=== PATIENT | male | born 1980 | race Two or more races ===

== ENCOUNTER 2017-11-06 23:14 | Emergency (ER) | payer SELFPAY ==
--- NOTE | 2017-11-06 23:29 | EDPHY ---
H & P HPI/ROS: Chief Complaint: Altered mental status, found down HPI: 37-year-old male found down next to [place]. Patient has been intermittently answering questions. He admits to drinking alcohol this evening. Does not recall if he sustained any injuries. Does state that he has been using cocaine recently as well. None this evening. Patient response briskly to painful stimuli then closes eyes and states that he does not want to talk to me. Denies nausea or vomiting. No numbness or weakness. Patient is answering questions per EMS. ROS: Unobtainable because the patient is unwilling to answer PMH: Anemia Social History: No smoking, positive alcohol, positive cocaine Family History: non-contributory Physical Exam: Gen: Awake, Alert, No Distress HEENT: Head: Atraumatic Nose: no rhinorrhea Eyes: PERRLA, EOMI Mouth: Moist mucosa Neck: Supple, no JVD Chest: nontender, lungs clear to auscultation Heart: S1, S2 normal, no murmur Abd: Soft, non-tender, no guarding Back: no CVA tenderness, no midline tenderness Ext: no edema, non-tender Skin: no rash Neuro: CN II-XII intact, Sensation grossly intact, Strength 5/5 in bilateral upper and lower extremities Constitutional: Initial Vital Signs Temperature (C) 37.2 C 11/06/17 23:27 Heart Rate 85 11/06/17 23:27 Respiratory Rate 18 11/06/17 23:27 Blood Pressure 99/55 L 11/06/17 23:27 O2 Sat (%) 93 11/06/17 23:27 O2 Delivery Mode Room Air O2 (L/minute) 2 Allergies/Adverse Reactions: No Known Allergies Allergy (Unverified 11/06/17 23:35) Home Medications: Medication Instructions Recorded NK [No Known Home Meds] 11/06/17 Medical Decision Making - Diagnostics Imaging Results: Imaging Impressions Head CT 11/06/17 23:23 Impression: There is no acute intracranial abnormality identified on this unenhanced CT evaluation. If there is further clinical concern regarding the patient's symptoms, MR imaging is suggested, if not otherwise contraindicated. Findings were discussed with Christopher Cruz MD at 23:53, on 11/06/2017. Imaging: Discussed imaging studies w/ enterprise resource planning consultant Radiologist ED Course/Re-evaluation: CT scan of the head is negative. Patient's symptoms consistent with alcohol intoxication. Will allow him to metabolize and reassess. Patient is now awake and appropriate. Ambulating unassisted to the bathroom. No current complaints. Medically cleared for discharge. - Data Points Laboratory Results: Laboratory Results 11/06/17 23:10 11/06/17 23:10 11/06/17 11/06/17 23:10 23:10 WBC 7.05 10^3/uL 10^3/uL (3.80-9.50) RBC 4.89 10^6/uL 10^6/uL (4.40-6.38) Hgb 10.5 g/dL L g/dL (13.7-17.5) Hct 35.2 % L % (40.0-51.0) MCV 72.0 fL L fL (81.5-99.8) MCH 21.5 pg L pg (27.9-34.1) MCHC 29.8 g/dL L g/dL (32.4-36.7) RDW 20.6 % H % (11.5-15.2) Plt Count 266 10^3/uL 10^3/uL (150-400) MPV 9.1 fL fL (8.7-11.7) Neut % (Auto) 43.6 % % (39.3-74.2) Lymph % (Auto) 37.9 % % (15.0-45.0) [place] % (Auto) 10.2 % % (4.5-13.0) Eos % (Auto) 7.0 % % (0.6-7.6) Baso % (Auto) 1.0 % % (0.3-1.7) Nucleat RBC Rel Count 0.3 % H % (0.0-0.2) Absolute Neuts (auto) 3.08 10^3/uL 10^3/uL (1.70-6.50) Absolute Lymphs (auto) 2.67 10^3/uL 10^3/uL (1.00-3.00) Absolute Monos (auto) 0.72 10^3/uL 10^3/uL (0.30-0.80) Absolute Eos (auto) 0.49 10^3/uL H 10^3/uL (0.03-0.40) Absolute Basos (auto) 0.07 10^3/uL 10^3/uL (0.02-0.10) Absolute Nucleated RBC 0.02 10^3/uL H 10^3/uL (0-0.01) Immature Gran % 0.3 % % (0.0-1.1) Immature Gran # 0.02 10^3/uL 10^3/uL (0.00-0.10) Platelet Estimate ADEQUATE (ADEQ) Polychromasia 1+ H Hypochromasia 1+ H Microcytic Cells 2+ H Oval Macrocytes 1+ H Sodium 134 mEq/L mEq/L (134-144) Potassium 4.2 mEq/L mEq/L (3.5-5.2) Chloride 99 mEq/L mEq/L (97-110) Carbon Dioxide 20 mEq/l L mEq/l (22-31) Anion Gap 15 mEq/L mEq/L (8-16) BUN 22 mg/dL mg/dL (7-23) Creatinine 1.8 mg/dL H mg/dL (0.7-1.3) Estimated GFR 43 Glucose 82 mg/dL mg/dL (70-100) Calcium 8.4 mg/dL L mg/dL (8.5-10.4) Ethyl Alcohol 267 mg/dL H mg/dL (0-10) Departure - Departure Disposition: Home, Routine, Self-Care Clinical Impression: Alcoholic intoxication Condition: Good Instructions: Alcohol Intoxication (ED) Referrals: Patient,NotPresent [Primary Care Provider] - As per Instructions
[2017-11-06 23:35] VITALS: TEMP 99
[2017-11-06 23:37] LABS: % IMMATURE GRANULYOCYTES 0.3 % (0.0-1.1); ABSOLUTE IMMATURE GRANULOCYTES 0.02 10^3/uL (0.00-0.10); ABSOLUTE NRBC COUNT 0.02 10^3/uL (0-0.01); ADD DIFF? NO; ADD MORPH? YES; ADD SCAN? NO; ATYPICAL LYMPHOCYTE FLAG 0 (0-99); FRAGMENT RBC FLAG 20 (0-99); HEMATOCRIT 35.2 % (40.0-51.0); HEMOGLOBIN 10.5 g/dL (13.7-17.5); LEFT SHIFT FLG 0 (0-99); LIPEMIA HEMOLYSIS FLAG 70 (0-99); MEAN CELL HEMOGLOBIN 21.5 pg (27.9-34.1); MEAN CELL HEMOGLOBIN CONCENTR. 29.8 g/dL (32.4-36.7); MEAN PLATELET VOLUME 9.1 fL (8.7-11.7); NRBC-AUTO% 0.3 % (0.0-0.2); PLATELET CLUMPS FLAG 0 (0-99); PLATELET COUNT 266 10^3/uL (150-400); RED BLOOD CELL COUNT 4.89 10^6/uL (4.40-6.38)
[2017-11-06 23:38] LABS: RED CELL DISTRIBUTION WIDTH 20.6 % (11.5-15.2)
[2017-11-06 23:45] LABS: ANION GAP 15 mEq/L (8-16); CALCIUM 8.4 mg/dL (8.5-10.4); CARBON DIOXIDE 20 mEq/l (22-31); CHLORIDE 99 mEq/L (97-110); CREATININE 1.8 mg/dL (0.7-1.3); ETHANOL SERUM 267 mg/dL (0-10); GLOMERULAR FILTRATION RATE 43; GLUCOSE 82 mg/dL (70-100); POTASSIUM 4.2 mEq/L (3.5-5.2); SODIUM 134 mEq/L (134-144)
[2017-11-07 00:03] LABS: MACROCYTES 1+; MICROCYTES 2+
[2017-11-07 00:04] LABS: HYPOCHROMIA 1+; PLATELET ESTIMATE ADEQUATE (ADEQ); POLYCHROMASIA 1+
[2017-11-07 01:34] VITALS: O2SAT 95
[2017-11-07 04:24] VITALS: BP 103/55; PULSE 70; RESP 15
== END 2017-11-07 05:06 | disposition home or self-care (01) ==
LOC: EDBD 23:14
DX: F10.129 Alcohol abuse with intoxication, unspecified (principal)
CPT/HCPCS: G0480

== ENCOUNTER 2017-12-09 10:17 | Emergency (ER) | payer MEDICAID ==
--- NOTE | 2017-12-09 11:47 | EDPHY ---
General - History Smoking Status: Never smoked Narrative: CHIEF COMPLAINT: M1 hold HISTORY OF PRESENT ILLNESS: Patient presents with reports of M1 hold by [place] [employer]. The patient reports that he was at [facility] attempting to seek help with suicidal thoughts that he has had since last night. He had plans of harming himself by provoking the police to injure him or kill him. He also felt that he would harm others to get the police to do so. He has felt increasingly depressed recently. He has not been on medication for this. He has done this in the past with same result. He has no medical complaints otherwise. No other associated complaints or modifying factors. PSYCHIATRIC DIAGNOSES: Depression anxiety PRIOR PSYCHIATRIC EVALUATIONS: Multiple at [facility] M1/DETAINER: [place] [employer] just prior to arrival today REVIEW OF SYSTEMS: Ten systems reviewed and are negative unless otherwise noted in the HPI EXAMINATION General Appearance: Alert, no distress, unkempt Head: normocephalic, atraumatic Eyes: Pupils equal and round, no conjunctival pallor or injection ENT, Mouth: Mucous membranes moist. Airway patent Neck: Normal inspection, supple, non-tender Respiratory: No retractions or distress. Cardiovascular: Regular rate. Good signs of perfusion Gastrointestinal: Obese abdomen is nondistended. Back: non-tender, no bony abnormalities Neurological: GCS 15. A&O, nonfocal, normal gait Skin: Warm and dry, no rash Extremities: Nontender, no pedal edema Psychiatric: Depressed mood and flat affect. Reports SI and HI with plan to "get the police to kill me by hurting other people first" DIFFERENTIAL DIAGNOSES: Including but not limited to SI, HI, depression, homeless, mood disorder MDM: 11:40 a.m. M1 hold for a suicidal thoughts, homicidal thoughts and aggressive behavior pre- hospital. The patient has a plan of by police by provoking them. I do not feel he has any intent to do so. I feel like the patient is seeking mcc from the weather. However we will proceed with medical clearance and evaluation. He is in no acute distress cooperative thus far. 1:00 p.m. Resting comfortably. Laboratory studies return. No urine sample provided yet 2:00 p.m. Laboratory studies have returned. They are consistent with his alcohol abuse but no acute findings. Drug tox negative. Proceed with psychiatric evaluation. He is medically cleared at this time 4:00 p.m. Patient still awaiting mental health evaluation. No acute distress 5:00 p.m. Patient is still awaiting mental health evaluation. At this time Dr. Boykin will assume care the patient. Please see his note for final disposition. SUPERVISION: Patient was independently examined, but I discussed the case with my secondary supervising physicians (Yfn Chu) The patient was evaluated and managed by the physician administrative services assistant. I have reviewed this chart and I agree with the findings and plan of care as documented , as indicated by my signature. I am the secondary supervising physician. ( Nicki Pulido) Medical Decision Makin:25 p.m. the patient has been evaluated by Mental Health. He no longer endorses suicidal ideations. The contracts for safety. He is eager to leave. They would like to his sent him in a cap to the mcc. He states that he has a history of mild withdrawal but has never had seizures. I will send him with Librium. He is not tachycardic or tremulous. (Cheng Boykin) - Objective Vital Signs: Initial Vital Signs Temperature (C) 36.6 C 12/09/17 10:17 Heart Rate 86 12/09/17 10:17 Respiratory Rate 16 12/09/17 10:17 Blood Pressure 165/103 H 12/09/17 10:17 O2 Sat (%) 95 12/09/17 10:17 O2 Delivery Mode Room Air Allergies/Adverse Reactions: No Known Allergies Allergy (Unverified 11/06/17 23:35) Home Medications: Medication Instructions Recorded NK [No Known Home Meds] 11/06/17 Laboratory Results: Laboratory Results 12/09/17 12:00 12/09/17 12:00 Medications Given: Discontinued Medications Chlordiazepoxide (Librium 25 Mg Prepack#6) 1 btl TAKEHOME EDNOW ONE Stop: 12/09/17 19:27 Last Admin: 12/09/17 19:49 Dose: 1 btl Ibuprofen (Motrin) 600 mg PO EDNOW ONE Stop: 12/09/17 17:45 Last Admin: 12/09/17 17:50 Dose: 600 mg Departure - Departure Disposition: Home, Routine, Self-Care Clinical Impression: Suicidal ideation, Alcoholism Condition: Fair Instructions: Chlordiazepoxide (By mouth), Alcohol Intoxication (ED), Suicide Prevention for Adults (ED) Referrals: [facility],. [Clinic] - As per Instructions
[2017-12-09 12:28] LABS: PLATELET COUNT 253 10^3/uL (150-400)
[2017-12-09 17:15] VITALS: RESP 20; TEMP 98.2; O2SAT 98
[2017-12-09] MEDS ORDERED: IBUPROFEN 600 MG TAB PO ONE (17:44)
[2017-12-09] MEDS ORDERED: CHLORDIAZEPOXIDE 25MG PREPK#6 BTL TAKEHOME ONE (19:26)
[2017-12-09 19:42] VITALS: BP 170/109; PULSE 95
== END 2017-12-09 20:09 | disposition home or self-care (01) ==
LOC: EEVIPCON 10:17
DX: R45.851 Suicidal ideations (principal); F10.20 Alcohol dependence, uncomplicated
CPT/HCPCS: 80305; G0480

== ENCOUNTER 2017-12-12 08:44 | Emergency (ER) | payer MEDICAID ==
[2017-12-12] MEDS ORDERED: IBUPROFEN 600 MG TAB PO ONE (09:08)
[2017-12-12] MEDS ORDERED: ONDANSETRON 4 MG/2 ML VIAL IVP ONE (09:13)
[2017-12-12] MEDS ORDERED: NS 1,000 ML IV ONE (09:13)
--- NOTE | 2017-12-12 09:18 | EDPHY ---
General Narrative: CHIEF COMPLAINT: "I think I got the flu" HISTORY OF PRESENT ILLNESS: Patient complains of 2 days history of cough, congestion, runny nose, sore throat, body aches, headaches, feeling that he has the flu. He thinks that he got when he was here Saturday for mental health evaluation. He had mild symptoms that night. He has attempted hydration and exercise with no improvement. He has not attempted any medications. He has no chest pain but he does have a dry cough. No abdominal pain or urinary complaints. No neck pain or stiffness but does feel sore all over. He has not yet been evaluated for these complaints. No other associated complaints or modifying factors. REVIEW OF SYSTEMS: Ten systems reviewed and are negative unless otherwise noted in the HPI PCP: Located in [place]. Appointment on December 22 SPECIALISTS: None currently PAST MEDICAL HISTORY: history of drug abuse alcohol abuse. Hypertension, anxiety PAST SURGICAL HISTORY: No recent surgery SOCIAL HISTORY: Nonsmoker. Frequent alcohol use. FAMILY HISTORY: Noncontributory EXAMINATION General Appearance: Alert, no distress Head: normocephalic, atraumatic Eyes: Pupils equal and round, no conjunctival pallor or injection ENT, Mouth: Mucous membranes moist. Airway patent. Minimal erythema. No edema. Neck: Normal inspection, supple, non-tender Respiratory: Mild rhonchi. No wheezing. No crackles. No diminishment. No consolidation. No retractions or distress Cardiovascular: Regular rate and rhythm. No murmur Gastrointestinal: Abdomen is soft and nontender Back: non-tender, no bony abnormalities Neurological: GCS 15. A&O, nonfocal, normal gait. Strength symmetric Skin: Warm and dry, no rash. No petechiae or purpura Extremities: Nontender, no pedal edema Psychiatric: Mood and affect normal DIFFERENTIAL DIAGNOSES: Including but not limited to influenza, viral bronchitis, bacterial bronchitis, pneumonia, upper respiratory infection, lower respiratory infection MDM: 9:13 a.m. Flu-like symptoms with examination consistent with history. There is no consolidation or evidence of pneumonia by auscultation. Vital signs are within normal limits. I do not suspect pneumonia or any other systemic, significant illness. I have ordered IV fluid, nausea medication and ibuprofen. Flu test is pending. I will check his CBC and chemistry to evaluate his renal function. 9:30 a.m. Notified by Betty LÓPEZ. Patient reports that he was supposed to be taking lisinopril with says he has not done so in the past week. He is out his medication and has an appointment on the for refill. Given that his blood pressure is elevated I have ordered a p.o. dose of lisinopril. He does not appear to be symptomatic from the hypertension. This is a daily medication dose. I am not ordering this to acutely lower the patient's blood pressure. 9:50 a.m. CBC is unremarkable and consistent with his history of alcohol abuse. 10:10 a.m. Chemistries unremarkable. Influenza test pending. Chest x-ray as read by me, without the aid of the radiologist, reveals hilda hilar thickening consistent with bronchitis. Possibly an early right lower lobe pneumonia. 10:25 a.m. X-ray has been read as central bronchitis. No pneumonia 10:30 a.m. Patient is positive for influenza A. This is consistent with his clinical picture. Chest x-ray does not reveal any pneumonia. He is in no acute distress and does not require any supplemental oxygen. He is stable for discharge home. I will treat him with Tamiflu given his less than 48 hr stated symptoms. Also provide short course of cough medicine, nausea medicine. Recommend increase fluid intake. Recommend follow up closely with his primary care physician for his high blood pressure. I will provide a 1 time prescription of his daily lisinopril 10 mg. ED precautions discussed. He is comfortable with this plan and discharged home in stable condition. SUPERVISION: Patient was independently examined, but I discussed the case with my secondary supervising physician Dr. Cleaning - Diagnostics Imaging Results: Imaging Impressions Chest X-Ray 12/12/17 09:52 Impression: Central bronchitis. - History Smoking Status: Never smoked - Objective Vital Signs: Initial Vital Signs Temperature (C) 99.3 F 12/12/17 08:46 Heart Rate 102 H 12/12/17 08:46 Respiratory Rate 18 12/12/17 08:46 Blood Pressure 221/106 H 12/12/17 08:46 O2 Sat (%) 96 12/12/17 08:46 O2 Delivery Mode Room Air Allergies/Adverse Reactions: No Known Allergies Allergy (Verified 12/12/17 08:45) Home Medications: Medication Instructions Recorded Acetaminophen/Codeine 300/30Mg 1 each PO Q6 PRN #7 tab 01/18/18 [Tylenol #3 (*)] Benzonatate [Tessalon Pearles (RX)] 100 mg PO Q8 PRN #15 cap 12/12/17 Lisinopril 10 mg PO DAILY #30 tablet 12/12/17 Oseltamivir Phosphate [Tamiflu 75 75 mg PO BID #10 cap 12/12/17 mg (*)] Laboratory Results: Laboratory Results 12/12/17 09:20 12/12/17 09:20 12/12/17 12/12/17 12/12/17 09:20 09:20 09:00 WBC 10.89 10^3/uL H 10^3/uL (3.80-9.50) RBC 5.16 10^6/uL 10^6/uL (4.40-6.38) Hgb 11.3 g/dL L g/dL (13.7-17.5) Hct 37.3 % L % (40.0-51.0) MCV 72.3 fL L fL (81.5-99.8) MCH 21.9 pg L pg (27.9-34.1) MCHC 30.3 g/dL L g/dL (32.4-36.7) RDW 19.3 % H % (11.5-15.2) Plt Count 284 10^3/uL 10^3/uL (150-400) MPV 8.8 fL fL (8.7-11.7) Neut % (Auto) 76.1 % H % (39.3-74.2) Lymph % (Auto) 10.0 % L % (15.0-45.0) [place] % (Auto) 9.6 % % (4.5-13.0) Eos % (Auto) 3.4 % % (0.6-7.6) Baso % (Auto) 0.4 % % (0.3-1.7) Nucleat RBC Rel Count 0.0 % % (0.0-0.2) Absolute Neuts (auto) 8.29 10^3/uL H 10^3/uL (1.70-6.50) Absolute Lymphs (auto) 1.09 10^3/uL 10^3/uL (1.00-3.00) Absolute Monos (auto) 1.05 10^3/uL H 10^3/uL (0.30-0.80) Absolute Eos (auto) 0.37 10^3/uL 10^3/uL (0.03-0.40) Absolute Basos (auto) 0.04 10^3/uL 10^3/uL (0.02-0.10) Absolute Nucleated RBC 0.00 10^3/uL 10^3/uL (0-0.01) Immature Gran % 0.5 % % (0.0-1.1) Immature Gran # 0.05 10^3/uL 10^3/uL (0.00-0.10) Sodium 136 mEq/L mEq/L (135-145) Potassium 4.7 mEq/L mEq/L (3.5-5.2) Chloride 100 mEq/L mEq/L (97-110) Carbon Dioxide 24 mEq/l mEq/l (22-31) Anion Gap 12 mEq/L mEq/L (8-16) BUN 13 mg/dL mg/dL (7-23) Creatinine 1.3 mg/dL mg/dL (0.7-1.3) Estimated GFR > 60 Glucose 101 mg/dL H mg/dL (70-100) Calcium 9.0 mg/dL mg/dL (8.5-10.4) Nasal Influenza A PCR FLU A DETECTED H (NEGATIVE) Nasal Influenza B PCR NEGATIVE FOR FLU B (NEGATIVE) Medications Given: Discontinued Medications Sodium Chloride (Ns) 1,000 mls @ 0 mls/hr IV EDNOW ONE; Wide Open PRN Reason: Protocol Stop: 12/12/17 09:14 Last Admin: 12/12/17 09:27 Dose: 1,000 mls Ibuprofen (Motrin) 600 mg PO EDNOW ONE Stop: 12/12/17 09:09 Last Admin: 12/12/17 09:11 Dose: 600 mg Lisinopril (Zestril) 10 mg PO DAILY CARMEN Stop: 06/11/18 08:59 Last Admin: 12/12/17 09:55 Dose: 10 mg Ondansetron HCl (Zofran) 4 mg IVP EDNOW ONE Stop: 12/12/17 09:14 Last Admin: 12/12/17 09:32 Dose: 4 mg Departure - Departure Disposition: Home, Routine, Self-Care Clinical Impression: Influenza A Acute bronchitis Qualifiers: Bronchitis organism: other organism Qualified Code(s): J20.8 - Acute bronchitis due to other specified organisms Condition: Good Instructions: Influenza (ED), Acute Bronchitis (ED) Additional Instructions: 1. Medications as prescribed to completion 2. Follow up with your primary care physician for further care 3. ED precautions as discussed Referrals: Danyell Castelan MD [Medical Doctor] - As per Instructions Prescriptions: Acetaminophen/Codeine 300/30Mg [Tylenol #3 (*)] 1 each PO Q6 PRN #7 tab PRN Reason: Pain, Mild Benzonatate [Tessalon Pearles (RX)] 100 mg PO Q8 PRN #15 cap PRN Reason: Cough, Mild Lisinopril 10 mg PO DAILY #30 tablet Oseltamivir Phosphate [Tamiflu 75 mg (*)] 75 mg PO BID #10 cap
[2017-12-12 09:41] LABS: PLATELET COUNT 284 10^3/uL (150-400)
[2017-12-12] MEDS: LISINOPRIL 2.5 MG TAB PO SCH ×2 (09:53→09:55)
[2017-12-12 10:51] VITALS: BP 140/82; PULSE 92; RESP 18; TEMP 98.8; O2SAT 94
== END 2017-12-12 10:57 | disposition home or self-care (01) ==
DX: J10.1 Influenza due to other identified influenza virus with other respiratory manifestations (principal); J20.9 Acute bronchitis, unspecified; I10 Essential (primary) hypertension; E86.9 Volume depletion, unspecified
CPT/HCPCS: 96374; J2405

== ENCOUNTER 2018-01-24 02:56 | Emergency (ER) | payer MEDICAID ==
--- NOTE | 2018-01-24 03:29 | EDPHY ---
H & P Stated Complaint: JORGITO EAR PAIN/CONGESTION - Personal History Current Tetanus Diphtheria and Acellular Pertussis (TDAP): Yes - Medical/Surgical History Hx Asthma: No Hx Chronic Respiratory Disease: No Hx Diabetes: No Hx Cardiac Disease: No Hx Renal Disease: No Hx Cirrhosis: No Hx Alcoholism: No Hx HIV/AIDS: No Hx Splenectomy or Spleen Trauma: No Other PMH: ETOH, drug use., HTN ( non compliant on meds), anxiety. PS, R LUNG EMPYEMA SX. - Social History Smoking Status: Never smoked Time Seen by Provider: 01/24/18 03:05 HPI/ROS: Chief Complaint: Ear pain, congestion HPI: 37-year-old homeless male presenting this morning complaining of bilateral ear pain, congestion, hearing loss. Patient does admit to drinking alcohol earlier. Patient was picked up by EMS and [place] campus. He states that he has had about a week of stridor congestion with worsening ear pain. No fevers or chills. No cough. No shortness of breath. Has been cleaning his ears with hydrogen peroxide Q-tips. He has also been taking Sudafed another decongestants without relief. Patient is also stating that he is feeling suicidal. He has lost his home is staying in the [facility]. He has a history of depression has had suicide attempts in the past with a polypharmacy overdose. He does not currently have a plan. He would like to speak with a mental health talent development specialist. ROS: 10 point Review of Systems is negative except as noted in the HPI. PMH: Hypertension Social History: No smoking, no alcohol, no recreational drug use Family History: non-contributory Physical Exam: Gen: Awake, Alert, No Distress, smells strongly of alcohol, ambulating unassisted without difficulty. HEENT: Ears: Bilateral TMs are erythematous right greater than left. There are bilateral cerumen impactions which removed for ear examination Nose: no rhinorrhea Eyes: PERRLA, EOMI Mouth: Moist mucosa Neck: Supple, no JVD Chest: nontender, lungs clear to auscultation Heart: S1, S2 normal, no murmur Abd: Soft, non-tender, no guarding Back: no CVA tenderness, no midline tenderness Ext: no edema, non-tender Skin: no rash Neuro: CN II-XII intact, Sensation grossly intact, Strength 5/5 in bilateral upper and lower extremities (Christopher Cruz) Constitutional: Initial Vital Signs Temperature (C) 37.1 C 01/24/18 03:03 Heart Rate 91 01/24/18 03:03 Respiratory Rate 16 01/24/18 03:03 Blood Pressure 179/125 H 01/24/18 03:03 O2 Sat (%) 95 01/24/18 03:03 O2 Delivery Mode Room Air Allergies/Adverse Reactions: No Known Allergies Allergy (Verified 12/12/17 08:45) Home Medications: Medication Instructions Recorded Lisinopril 10 mg PO DAILY #30 tablet 12/12/17 Amoxicillin Trihydrate [Amoxil] 500 mg PO Q8H #30 cap 01/24/18 Medical Decision Making Procedures: Procedure: Cerumen removal. After a physical exam was performed cerumen needed to be removed from the patient's ear canal. The indication of the procedure was cerumen impaction and inability to complete the ear exam. The procedure was performed with water irrigation and an ear curette. The patient tolerated the procedure well. The procedure was performed by myself. (Christopher Cruz) ED Course/Re-evaluation: 0 700: The patient is signed out to me at change of shift by Dr. Cruz. Patient is stable. He is awaiting psychiatric evaluation. I had multiple discussions with Psychiatric Services. 10 40: Psychiatric Services recommend the patient be discharged home. Patient felt comfortable with this plan. He is given warnings prior to leaving. ( Alexandra Pemberton) [age] year old male with a cerumen impaction and otitis media. Patient upon discharge time me that he is actually also feeling depressed and suicidal. He has recently lost his home is staying at the prison. Patient would like speak with mental health talent development specialist. Will screening labs have been sent. Patient is medically cleared being mental health evaluation. [address] Pemberton pending mental health evaluation at (Christopher Cruz) - Data Points Laboratory Results: Laboratory Results 01/24/18 04:06 01/24/18 04:06 Medications Given: Discontinued Medications Acetaminophen (Tylenol) 650 mg PO EDNOW ONE Stop: 01/24/18 08:44 Last Admin: 01/24/18 08:46 Dose: 650 mg Amoxicillin (Amoxicillin) 500 mg PO EDNOW ONE PRN Reason: Protocol Stop: 01/24/18 03:31 Last Admin: 01/24/18 03:44 Dose: 500 mg Sodium Chloride (Ns) 1,000 mls @ 0 mls/hr IV ONCE ONE; Wide Open PRN Reason: Protocol Stop: 01/24/18 04:53 Last Admin: 01/24/18 05:09 Dose: 1,000 mls Sodium Chloride (Ns) 1,000 mls @ 0 mls/hr IV ONCE ONE; Wide Open PRN Reason: Protocol Stop: 01/24/18 04:54 Last Admin: 01/24/18 05:09 Dose: 1,000 mls Departure - Departure Disposition: Home, Routine, Self-Care Clinical Impression: Otitis media, Cerumen impaction, Depression Condition: Good Instructions: Cerumen Impaction (ED), Ear Infection (ED) Additional Instructions: Follow up with primary care physician in 4-5 days for further evaluation. Referrals: [facility] [Clinic] - As per Instructions Prescriptions: Amoxicillin Trihydrate [Amoxil] 500 mg PO Q8H #30 cap
[2018-01-24 04:13] LABS: PLATELET COUNT 399 10^3/uL (150-400)
[2018-01-24] MEDS ORDERED: NS 1,000 ML IV ONE ×2 (04:52→04:53)
[2018-01-24] MEDS ORDERED: ACETAMINOPHEN 325 MG TAB PO ONE (08:43)
[2018-01-24 10:49] VITALS: BP 163/101; PULSE 92; RESP 18; TEMP 98.1; O2SAT 97
== END 2018-01-24 10:54 | disposition home or self-care (01) ==
LOC: EDUNIT#
PROC: F09Z3XZ Cerumen Management Treatment using Cerumen Management Equipment (ICD-10-PCS; principal; 2018-01-24)
DX: H66.93 Otitis media, unspecified, bilateral (principal); I10 Essential (primary) hypertension; E86.9 Volume depletion, unspecified; F32.9 Major depressive disorder, single episode, unspecified; H61.23 Impacted cerumen, bilateral
CPT/HCPCS: 80305; G0480

== ENCOUNTER 2018-02-11 15:14 | Emergency (ER) | payer MEDICAID ==
[~2018-02-11 15:14] MED LIST: LISINOPRIL 10 MG TAB PO SCH
[2018-02-11 15:22] VITALS: BP 161/111; PULSE 85; RESP 18; TEMP 98.2; O2SAT 96
--- NOTE | 2018-02-11 16:22 | EDPHY ---
H & P Smoking Status: Never smoked Time Seen by Provider: 02/11/18 16:00 HPI/ROS: CHIEF COMPLAINT: Back pain HISTORY OF PRESENT ILLNESS: 37-year-old homeless male presents to the emergency department complaining of bilateral flank pain. Patient has a history of "kidney problems". He states "I think my kidneys are acting up". He states that he has been trying to drink a large amount of water today but it is only urinated very little. He denies dysuria, urgency or frequency with urination. No hematuria. No fevers or chills. No reported trauma. He denies abdominal pain, nausea or vomiting. He also has a history of high blood pressure and ran out of his 10 mg lisinopril 2 days ago. He has a primary care provider in [place]. He has been staying at the intermediate in [place]. REVIEW OF SYSTEMS: Constitutional: No fever, no chills. Eyes: No double or blurry vision. ENT: No sore throat. Respiratory: No cough, no shortness of breath. Cardiac: No chest pain. Gastrointestinal: No abdominal pain, vomiting or diarrhea. Genitourinary: No dysuria. Musculoskeletal: Back pain as above. No neck pain. Skin: No rashes. Neurological: No headache. (Rachelle Rowe) Past Medical/Surgical History: Substance abuse, hypertension ran out of medication 2 days ago (Rachelle Rowe) Social History: Homeless (Rachelle Rowe) Physical Exam: General Appearance: Alert, no distress. Eyes: Pupils equal and round. Extraocular motions are all intact. ENT: Mouth: Mucous membranes moist. Respiratory: No wheezing, rhonchi, or rales, lungs are clear to auscultation. Cardiovascular: Regular rate and rhythm. Gastrointestinal: Abdomen is soft and nontender, no masses, no rebound or guarding, bowel sounds normal. Bilateral CVA tenderness, worse on the right compared to the left. Neurological: Alert and oriented x 3, cranial nerves II through XII grossly intact Skin: Warm and dry, no rashes. Musculoskeletal: Nontender to palpate along the cervical, thoracic or lumbar spine. Neck is supple. Extremities: Full range of motion and no peripheral edema. The patient is able to lift his right and his left leg up without difficulty although this does cause pain. Normal gait. Psychiatric: Patient is oriented X 3, there is no agitation. (Rachelle Rowe) Constitutional: Initial Vital Signs Temperature (C) 36.8 C 02/11/18 15:20 Heart Rate 85 02/11/18 15:20 Respiratory Rate 18 02/11/18 15:20 Blood Pressure 161/111 H 02/11/18 15:20 O2 Sat (%) 96 02/11/18 15:20 O2 Delivery Mode Room Air Allergies/Adverse Reactions: No Known Allergies Allergy (Verified 12/12/17 08:45) Home Medications: Medication Instructions Recorded Lisinopril 10 mg PO DAILY #30 tablet 12/12/17 Amoxicillin Trihydrate [Amoxil] 500 mg PO Q8H #30 cap 01/24/18 Lisinopril 10 mg PO DAILY #14 tablet 02/11/18 Medical Decision Making ED Course/Re-evaluation: 37-year-old male presents to the emergency department with low back pain. The patient is concerned that this is related to his kidneys. He has had elevated creatinine and in the past. Laboratory studies today reveal BUN of 34 and a creatinine of 1.7. His creatinine 2 weeks ago was 2.1. The patient does admit to drinking a large amount of alcohol over the weekend and not a lot of water. He does state however he was trying to drink a lot of water today. Patient received IV normal saline while he was here. Hemoglobin is 12.1 and hematocrit is 39.9% which is improved since 2 weeks ago. I do not think imaging studies are indicated. Patient's back pain is likely musculoskeletal in nature. He does have pain with sitting upright and lifting his left and his right leg as well as walking. I did encourage him to have close follow-up with [facility] whom he has seen in the past to have his laboratory studies repeated to make sure his creatinine improved. The patient also has a history of hypertension and has been out of his lisinopril for last 2 days. He was given a prescription for lisinopril 10 mg # 14. (Rachelle Rowe) Differential Diagnosis: Back pain including but not limited to muscular pain, herniated disc, spine fracture, renal insufficiency, intra-abdominal causes and urinary tract infection. (Rachelle Rowe) Other Provider: PHYSICIAN DOCUMENTATION: The patient was evaluated and managed by the Physician Director [employer]. My co- signature indicates that I have reviewed this chart and I agree with the findings and plan of care as documented. I am the secondary supervising physician. (Angel Carty) - Data Points Laboratory Results: Laboratory Results 02/11/18 16:37 18 16:37 18 18 02/11/18 17:00 16:37 16:37 WBC 5.72 10^3/uL 10^3/uL (3.80-9.50) RBC 5.33 10^6/uL 10^6/uL (4.40-6.38) Hgb 12.1 g/dL L g/dL (13.7-17.5) Hct 39.9 % L % (40.0-51.0) MCV 74.9 fL L fL (81.5-99.8) MCH 22.7 pg L pg (27.9-34.1) MCHC 30.3 g/dL L g/dL (32.4-36.7) RDW 20.7 % H % (11.5-15.2) Plt Count 189 10^3/uL 10^3/uL (150-400) MPV 9.2 fL fL (8.7-11.7) Neut % (Auto) 72.4 % % (39.3-74.2) Lymph % (Auto) 14.7 % L % (15.0-45.0) [place] % (Auto) 8.0 % % (4.5-13.0) Eos % (Auto) 3.5 % % (0.6-7.6) Baso % (Auto) 1.2 % % (0.3-1.7) Nucleat RBC Rel Count 0.0 % % (0.0-0.2) Absolute Neuts (auto) 4.14 10^3/uL 10^3/uL (1.70-6.50) Absolute Lymphs (auto) 0.84 10^3/uL L 10^3/uL (1.00-3.00) Absolute Monos (auto) 0.46 10^3/uL 10^3/uL (0.30-0.80) Absolute Eos (auto) 0.20 10^3/uL 10^3/uL (0.03-0.40) Absolute Basos (auto) 0.07 10^3/uL 10^3/uL (0.02-0.10) Absolute Nucleated RBC 0.00 10^3/uL 10^3/uL (0-0.01) Immature Gran % 0.2 % % (0.0-1.1) Immature Gran # 0.01 10^3/uL 10^3/uL (0.00-0.10) Platelet Estimate ADEQUATE (ADEQ) Hypochromasia 1+ H Microcytic Cells 1+ H Sodium 135 mEq/L mEq/L (135-145) Potassium 5.0 mEq/L mEq/L (3.5-5.2) Chloride 101 mEq/L mEq/L (97-110) Carbon Dioxide 17 mEq/l L mEq/l (22-31) Anion Gap 17 mEq/L H mEq/L (8-16) BUN 34 mg/dL H mg/dL (7-23) Creatinine 1.7 mg/dL H mg/dL (0.7-1.3) Estimated GFR 46 Glucose 75 mg/dL mg/dL (70-100) Calcium 9.6 mg/dL mg/dL (8.5-10.4) Urine Color PALE YELLOW Urine Appearance CLEAR Urine pH 5.0 (5.0-7.5) Ur Specific [place] 1.005 (1.002-1.030) Urine Protein 1+ H (NEGATIVE) Urine Ketones TRACE H (NEGATIVE) Urine Blood 1+ H (NEGATIVE) Urine Nitrate NEGATIVE (NEGATIVE) Urine Bilirubin NEGATIVE (NEGATIVE) Urine Urobilinogen NEGATIVE EU EU (0.2-1.0) Ur Leukocyte Esterase NEGATIVE (NEGATIVE) Urine RBC NONE SEEN /hpf /hpf (0-3) Urine WBC NONE SEEN /hpf /hpf (0-3) Ur Epithelial Cells NONE SEEN /lpf /lpf (NONE-1+) Urine Glucose NEGATIVE (NEGATIVE) Departure - Departure Disposition: Home, Routine, Self-Care Clinical Impression: Lumbar pain Condition: Good Instructions: Low Back Strain (ED) Additional Instructions: 1. You have been given the contact number for [facility]. Please contact them to schedule a follow-up visit. Continue your lisinopril daily as prescribed. Referrals: [facility],. [Clinic] - As per Instructions Prescriptions: Lisinopril 10 mg PO DAILY #14 tablet
[2018-02-11 16:52] LABS: PLATELET COUNT 189 10^3/uL (150-400)
--- NOTE | 2018-02-11 18:14 | ASMTCMCOM ---
CM Note CM Note Notes: Mapped prescription for Lisinopril; 10 mg po QD, #14 (2 weeks supply) Patient states that he has a doctor which he sees in [place] for prescriptions but he is currently staying at the senior care in [place]. He states that he has contact information for the [facility] in [place] as well. Patient is aware that he will need to follow up with one of these providers for refills on his medication. Date Signed: 02/11/2018 06:13 PM Electronically Signed By:Emma Lucio RN
== END 2018-02-11 18:34 | disposition home or self-care (01) ==
DX: M54.5 Low back pain (principal); I10 Essential (primary) hypertension

== ENCOUNTER 2018-10-10 16:19 | Emergency (ER) | payer MEDICAID ==
[2018-10-10] MEDS ORDERED: NS 1,000 ML IV ONE ×2 (17:09→18:52)
[2018-10-10 17:55] LABS: PLATELET COUNT 349 10^3/uL (150-400)
--- NOTE | 2018-10-10 17:57 | EDPHY ---
H & P Time Seen by Provider: 10/10/18 16:48 HPI/ROS: HPI Fatigue, fainted yesterday, shortness of breath, muscle aches. 38-year-old male by private vehicle. Reports that he had an episode of fainting yesterday because he felt very fatigued. He stated that at work he got lightheaded sat down and thinks he lost consciousness for a few minutes. No associated chest pain or palpitations. He presents to the emergency department now complaining of feeling very fatigued, complaining of some shortness of breath and muscle aches and joint aches. Denies fever. Denies ill contacts. He also states that he lost his lisinopril and has not taken this in over a week. He is asking for refill of this medication. States that he has not been drinking alcohol using drugs today. He does state however that he uses methamphetamine on a regular basis and has been using this over the last few days. He reports however that he did not use any yesterday and was able to sleep last night. This may be contributing to his semi somnolent state in the emergency department now. ROS: Constitutional: No fever, no chills. As above. Eyes: No discharge. No changes in vision. ENT: No sore throat. No nasal congestion or rhinorrhea. Respiratory: No cough. As above. Cardiac: No chest pain, no palpitations. Gastrointestinal: No abdominal pain, no vomiting, no diarrhea. Genitourinary: No hematuria. No dysuria or increased frequency with urination. Musculoskeletal: No back pain. No neck pain. As above. Skin: No rashes. Neurological: No headache. No focal weakness or altered sensation. Past medical history: History of alcohol abuse, drug use, noncompliance with medications, anxiety, depression, seen in the past here for suicidal thoughts, surgery on right lung for empyema. His healthcare is down in [place]. Social history: History of alcohol and drug abuse. Smokes occasionally. Currently here by himself. Works construction. Physical Exam: General Appearance: Sleepy, arouses to voice. Obese habitus. This patient is responding to questions appropriately and in full sentences. This patient appears well-hydrated and well-nourished. Eyes: Pupils equal and round no pallor or injection. No lid edema, erythema or injection. ENT, Mouth: Mucous membranes are dry. The pharyngeal tissues are unremarkable. No edema or swelling. No asymmetry suggestive of abscess. No erythema or exudates. Respiratory: There are no retractions, lungs are clear to auscultation anteriorly with good air movement bilaterally. Cardiovascular: Regular rate and rhythm. Borderline tachycardia. No murmur. Gastrointestinal: Obese habitus. Abdomen is soft and nontender, no masses, bowel sounds normal. No focal tenderness at McBurney's point. No Diaz sign. Neurological: Motor sensory function is grossly intact. Cranial nerves are normal. Gait is normal. Skin: Warm and dry, no rashes. Musculoskeletal: Neck is supple and nontender. Extremities are symmetrical. All joints range without pain or impingement. Psychiatric: No agitation. No depression. Database: EKG: EKG time is 7:22 p.m.; EKG shows a narrow complex normal sinus rhythm with a ventricular rate of 90. Borderline left axis deviation. The DE, QRS, QT intervals are within normal limits. There are no ST-T wave changes indicative of ischemic or injury pattern. No evidence of right heart strain. Interpreted by me. Imaging: Chest x-ray PA and lateral; the cardiac mediastinal silhouette is unremarkable. No evidence of infiltrate or pneumothorax. No acute cardiopulmonary disease process noted. Interpreted by me. Procedures: Emergency department course: Triage vital signs reviewed. He is moderately hypertensive. Triage vital signs are otherwise normal. IV was placed. He was placed on a monitoring tech. When he falls asleep is pulse oximetry dips into the upper 80s. When he is awake and talking he is in the mid to high 90s. He was placed on 2 L of nasal cannula oxygen. He was started on IV normal saline with 1 L to be given over the next hour initially. 6:50 p.m., the patient was re-evaluated. Sleeping but easily arousable. Serum alcohol is 99. He admits to drinking heavily last night. I discussed the results of his blood work. Creatinine slightly elevated at 1.5 but this is better than his previous on review of his medical records. He does have a history of anemia. This appears to be a microcytic anemia. Hemoglobin is currently 9.7. UDS is pending. EKG currently pending. The patient is telling me now that he is suicidal. He states that he has been having a lot of personal problems but will not give me details on this. He states that he wants to end it all and kill himself. He will be moved to room 19 for further management and a behavioral health evaluation. 9:30 p.m., the patient has been seen and evaluated by Behavioral Health. He is not suicidal. He has been cleared for discharge by the on-call psychiatrist Dr. Patel. Her the patient is an open client with [facility]. Follow-up in their clinic has been arranged for tomorrow. I discussed with the patient being discharged and he feels comfortable with this. I also discussed the importance of follow-up for his chronic likely iron deficiency anemia. I have discussed follow-up through [facility] with him. Return to emergency department precautions reviewed. All of his questions were answered. He was discharged in good condition. Differential Diagnosis: The differential diagnosis on this patient includes but is not limited to methamphetamine abuse, viral syndrome, sleep apnea, uncontrolled hypertension. This represents a partial list of diagnoses considered. These considerations are based on history, physical exam, past history, reassessment and diagnostic testing. Smoking Status: Never smoked Constitutional: Initial Vital Signs Temperature (C) 36.7 C 10/10/18 16:23 Heart Rate 90 10/10/18 16:23 Respiratory Rate 18 10/10/18 16:23 Blood Pressure 161/108 H 10/10/18 16:23 O2 Sat (%) 95 10/10/18 16:23 O2 Delivery Mode Room Air O2 (L/minute) 2 Allergies/Adverse Reactions: No Known Allergies Allergy (Verified 10/10/18 16:22) Home Medications: Medication Instructions Recorded NK [No Known Home Meds] 10/10/18 Medical Decision Making - Data Points Laboratory Results: Laboratory Results 10/10/18 17:35 10/10/18 17:35 Medications Given: Discontinued Medications Sodium Chloride (Ns) 1,000 mls @ 0 mls/hr IV EDNOW ONE; Wide Open PRN Reason: Protocol Stop: 10/10/18 17:10 Last Admin: 10/10/18 17:30 Dose: 1,000 mls Sodium Chloride (Ns) 1,000 mls @ 0 mls/hr IV EDNOW ONE; Wide Open PRN Reason: Protocol Stop: 10/10/18 18:53 Last Admin: 10/10/18 19:52 Dose: 1,000 mls Point of Care Test Results: Chemistry 10/10/18 17:42 POC Troponin I 0.02 ng/mL ng/mL (0.00-0.08) Departure - Departure Disposition: Home, Routine, Self-Care Clinical Impression: Dehydration, Methamphetamine abuse, Alcohol abuse, Anemia, Situational depression Condition: Good Instructions: Depression (ED), Abuse of Alcohol (ED) Additional Instructions: Read and follow provided instructions. Follow-up with your primary care physician in on Saturday for re-evaluation. You need to have your blood counts rechecked. You also need to follow up with [facility] as discussed. They will see you at their clinic on Saturday as well. Take your medication as prescribed. Return to the emergency department for worsening symptoms, worsening depression , lightheadedness, chest pain, shortness of breath or other serious concerns. Referrals: NONE *PRIMARY CARE P,. [Primary Care Provider] - As per Instructions [facility] [Outside] - As per Instructions
[2018-10-10 22:09] VITALS: BP 160/100
--- NOTE | 2018-10-10 22:18 | ASMTTLCEVL ---
TLC Evaluation - Basic Information Evaluation Start Date and 10/10/2018 07:00 PM Time Hospital Status Answers: Voluntary Patient statement Notes: "please go away now" Diagnosis History Notes: Per [facility] eval pt was diagnosed with Alcohol use disorder severe F10.20 and General Anxiety Disorder F41.1 Pt has a history of using services and threatening suicide if discharged. Prior suicide attempts Notes: 1 attempt last year Prior hospitalizations Notes: None reported Treatment Responses Notes: After discharged pt continues to drink History of violence Notes: None reported Therapist: [facility] Therapist (PT doesn't recall) Psychiatrist: MD Malachi Medications (name, dosage, route, freq uency) Notes: Vivitrol Allergies/Reaction Notes: None reported Sleep Notes: Poor Appetite Notes: Normal Medical/Surgical history Notes: Surgery on right lung for empyema. Substance use history (frequency, intensity, his tory, duration) Notes: ETOH, THC, Amphetamine (Further details were not disclosed) Family composition Notes: Pt is unmarried but reportedly has 1 child Need for family Answers: No participation in patient's care Family psychiatric/substance abuse history Notes: PT would not disclose Developmental history Notes: PT would not disclose Abuse concerns Answers: None Marital status/children Notes: Pt is unmarried but reportedly has 1 child Living situation Notes: Pt reported he lives in 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 Notes: None reported Legal Notes: None Reported Moravian/Spiritual Notes: None Reported Leisure Notes: None Reported Collateral Notes: Collateral data obtained from ed physicain report, previous records of SI in November 2017 in ED and previous [facility] crisis eval from April 2018 (Pt was at [facility] and when he was told he was to be discharged he reported he was suicidal and would jump off a bridge if discharged). Pt is an open client of [facility] and went through a comprehensive assessment 09/18/18 for out patient services. Patient's strengths Answers: Motivated for Treatment (Please select at least TWO strengths): Willingness Narrative Notes: PT is a 38 Yo male, employed, homeless (living in [facility]), self presented to ED for fatigue. When pt reported he would be discharged he then stated that he was suicidal. PT reported using meth for the last few days but denied any today. Pt also denied any drinking or other drug use today. PT's BAL was .99 and positive for Benzo's andTHC. PT then reported to ED physician that he had been drinking all night previously. PT was seen by a Clinical Assessment Team relationship counselor and reported that he didn't want to talk and asked relationship counselor go to away. PT offered limited responses then stopped speaking altogether. 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 PT denied any psychiatric hospitalization. PT reported he has a psychiatrist and therapist [facility]. PT reported he is not but has 1 child. At this point PT refused to respondt to any other questions. [facility] was contacted for collateral information. PT completed a comprehensive intake eval to become an open client on September 18. PT's last crisis evaluation was complete don 05/15/18 and a copy of that eval was faxed over to [facility] clinical asseessment team and fax attached for future reference. Per ED report " EMERGENCY DEPARTMENT PROVIDER REPORT HPI: Fatigue, fainted yesterday, shortness of breath, muscle aches. 38-year-old male by private vehicle. Reports that he had an episode of fainting yesterday because he felt very fatigued. He stated that at work he got lightheaded sat down and thinks he lost consciousness for a few minutes. No associated chest pain or palpitations. He presents to the emergency department now complaining of feeling very fatigued, complaining of some shortness of breath and muscle aches and joint aches. Denies fever. Denies ill contacts. He also states that he lost his lisinopril and has not taken this in over a week. He is asking for refill of this medication. States that he has not been drinking alcohol using drugs today. He does state however that he uses methamphetamine on a regular basis and has been using this over the last few days. He reports however that he did not use any yesterday and was able to sleep last night. This may be contributing to his semi somnolent state in the emergency department now. ROS: Constitutional: No fever, no chills. As above. Eyes: No discharge. No changes in vision. ENT: No sore throat. No nasal congestion or rhinorrhea. Respiratory: No cough. As above. Cardiac: No chest pain, no palpitations. Gastrointestinal: No abdominal pain, no vomiting, no diarrhea. Genitourinary: No hematuria. No dysuria or increased frequency with urination. Musculoskeletal: No back pain. No neck pain. As above. Skin: No rashes. Neurological: No headache. No focal weakness or altered sensation. Past medical history: History of alcohol abuse, drug use, noncompliance with medications, anxiety, depression, seen in the past here for suicidal thoughts, surgery on right lung for empyema. His healthcare is down in [place]. Social history: History of alcohol and drug abuse. Smokes occasionally. Currently here by himself. Works construction. Physical Exam: General Appearance: Sleepy, arouses to voice. Obese habitus. This patient is responding to questions appropriately and in full sentences. This patient appears well-hydrated and well-nourished. Eyes: Pupils equal and round no pallor or injection. No lid edema, erythema or injection. ENT, Mouth: Mucous membranes are dry. The pharyngeal tissues are unremarkable. No edema or swelling. No asymmetry suggestive of abscess. No erythema or exudates. Respiratory: There are no retractions, lungs are clear to auscultation anteriorly with good air movement bilaterally. Cardiovascular: Regular rate and rhythm. Borderline tachycardia. No murmur. Gastrointestinal: Obese habitus. Abdomen is soft and nontender, no masses, bowel sounds normal. No focal tenderness at McBurney's point. No Diaz sign. Neurological: Motor sensory function is grossly intact. Cranial nerves are normal. Gait is normal. Skin: Warm and dry, no rashes. Musculoskeletal: Neck is supple and nontender. Extremities are symmetrical. All joints range without pain or impingement. Psychiatric: No agitation. No depression. Database: EKG: EKG time is.[ ]; EKG shows a narrow complex normal sinus rhythm with a ventricular rate of..[ ]. The OH, QRS, QT intervals are within normal limits. There are no ST-T wave changes indicative of ischemic or injury pattern. No evidence of right heart strain. Interpreted by me. Imaging:Chest x-ray PA and lateral; the cardiac mediastinal silhouette is unremarkable. No evidence of infiltrate or pneumothorax. No acute cardiopulmonary disease process noted. Interpreted by me. Procedures: Emergency department course: Triage vital signs reviewed. He is moderately hypertensive. Triage vital signs are otherwise normal. IV was placed. He was placed on a gambling monitor. When he falls asleep is pulse oximetry dips into the upper 80s. When he is awake and talking he is in the mid to high 90s. He was placed on 2 L of nasal cannula oxygen. He was started on IV normal saline with 1 L to be given over the next hour initially. 6:50 p.m., the patient was re-evaluated. Sleeping but easily arousable. Serum alcohol is 99.He admits to drinking heavily last night. I discussed the results of his blood work. Creatinine slightly elevated at 1.5 but this is better than his previous on review of his medical records. He does have a history of anemia. This appears to be a microcytic anemia. Hemoglobin is currently 9.7. UDS is pending. EKG currently pending. The patient is telling me now that he is suicidal. He states that he has been having a lot of personal problems but will give me details on this. He states that he wants to end it all and kill himself. He will be moved to room 19 for further management and a behavioral health evaluation. Differential Diagnosis: The differential diagnosis on this patient includes but is not limited to methamphetamine abuse, viral syndrome, sleep apnea, uncontrolled hypertension. This represents a partial list of diagnoses considered. These considerations are based on history, physical exam, past history, reassessment and diagnostic testing. Smoking Status: Never smoked Constitutional: Initial Vital Signs Temperature (C) 36.7 C 10/10/18 16:23 Heart Rate 90 10/10/18 16:23 Respiratory Rate 18 10/10/18 16:23 Blood Pressure 161/108 H 10/10/18 16:23 O2 Sat (%) 95 10/10/18 16:23 O2 Delivery Mode Nasal Cannula O2 (L/minute) 2 Allergies/Adverse Reactions: No Known Allergies Allergy (Verified 10/10/18 16:22) Home Medications: Medical Decision Making - Diagnostics Imaging Results: Imaging Impressions Chest X-Ray 10/10/18 17:09 Impression: Stable negative chest. - Data Points Medications Given: Discontinued Medications Sodium Chloride (Ns) 1,000 mls @ 0 mls/hr IV EDNOW ONE; Wide Open PRN Reason: Protocol Stop: 10/10/18 17:10 Last Admin: 10/10/18 17:30 Dose: 1,000 mls" TLC Evaluation - Mental Status Exam Appearance: Answers: Unkempt Disheveled Eye Contact: Answers: Absent Mood: Answers: Depressed Affect: Answers: Agitated Congruent w/ Mood Guarded Inappropriate Irritable Subdued Behavior: Answers: Appropriate Uncooperative Guarded Manipulative Passive Resistive to Care Withdrawn Speech: Answers: Relevant Clear Coherent Dramatic Mumbling Thought Process: Answers: Organized Oriented Alert Insight: Answers: Fair Judgement: Answers: Fair Manic Signs/Symptoms Answers: Mood Swings Depression Answers: Flat Affect Signs/Symptoms: Withdrawn Anxiety Signs/Symptoms Answers: Generalized Anxiety Hallucinations: Answers: None Current Stage of Change Answers: Relapse Pt reported to have Answers: No suicidal/self-injuring ideation/behavior? Pt reported to be making Answers: Yes suicidal/self-injuring threats? Pt reported to have Answers: No aggression/assault ideation/behavior? Pt reported to be making Answers: No aggression/assault threats? Pt exhibits inability to Answers: No care for self/grave disability? Ideation/behavior is Answers: Yes chronic? Patient has a specific Answers: No plan? Pt has access to means to Answers: No execute the plan? Ideation involves Answers: No serious/lethal intent? Ideation has Answers: No delusional/hallucinatory content? History of Answers: Yes suicidal/self-injuring ideation, behavior, or threats? History of Answers: No aggressive/assaultive ideation, behavior, or threats? History of serious Answers: No physical harm to self/others while in treatment setting? [facility] Evaluation - Suicide/Homicide Risk Suicide Risk Factors: Answers: Alcohol/Heavy Drug Use Financial Difficulties Inadequate Social Support Intoxication Lack of Moravian Support Lack of Social Support Lack/Loss of Employment Single Unstable Living Situation Homicide/violence risk Answers: None factors: Current Suicidal Answers: Yes Ideation? Current Suicidal Ideation Answers: No in the Past 48 Hours? Current Suicidal Ideation Answers: No in the Past Month? Current Suicidal Answers: No Ideation, Worst Ever? Suicide Internal Answers: Absence of Psychosis Protective Factors: Frustration Tolerance Frank with Stress Suicide External Answers: Positive Therapeutic Protective Factors: Relationships Ranking of patient's Answers: Moderate suicidal risk: Ranking of patient's Answers: Low homicidal risk: [facility] Evaluation - Wrap-up AXIS I Diagnosis (include DSM-V and ICD-10 codes), must also be entered in [employer], which is the source of truth. Notes: PT refused to complete assessments or to particiapate in evaluation. Per [facility] eval pt was diagnosed with Alcohol use disorder severe F10.20 and General Anxiety Disorder F41. Evaluation End Date and 10/10/2018 10:00 PM Time (HH:THOMAS): Date Signed: 10/10/2018 10:15 PM Electronically Signed By:Kasi Garcia
--- NOTE | 2018-10-10 22:20 | ASMTTCLDSP ---
TLC Discharge Disposition Disposition: Answers: Discharge Disposition Notes: Notes: In consultation with [facility] ED physician, Low Lamas MD, and on-call psychiatrist, Shar Patel MD, both concurred that pt does not appear to meet 27-65 criteria requiring psychiatric hospitalization as pt does not appear to be an imminent risk of harm to self due to a mental illness condition. Discharge Concerns/Recommendations: Notes: PT should follow up with P out pt resources. PT is an open client and has also been advised he can use [facility] Crisis walk in center if needed. Date Signed: 10/10/2018 10:19 PM Electronically Signed By:Kasi Garcia
--- NOTE | 2018-10-11 09:23 | CPEKG ---
Test Reason : OPEN Blood Pressure : / mmHG Vent. Rate : 090 BPM Atrial Rate : 090 BPM P-R Int : 135 ms QRS Dur : 107 ms QT Int : 374 ms P-R-T Axes : 048 -18 033 degrees QTc Int : 458 ms Sinus rhythm Borderline left axis deviation Confirmed by Low Cleaning ([id number]) on 10/11/2018 9:23:21 AM Referred By: Confirmed By:Low Cleaning
== END 2018-10-10 22:09 | disposition home or self-care (01) ==
PROC: GZ11ZZZ Psychological Tests, Personality and Behavioral (ICD-10-PCS; principal; 2018-10-10)
DX: E86.0 Dehydration (principal); F15.20 Other stimulant dependence, uncomplicated; F10.10 Alcohol abuse, uncomplicated; D64.9 Anemia, unspecified; F43.21 Adjustment disorder with depressed mood; R53.83 Other fatigue; R55 Syncope and collapse; R06.02 Shortness of breath; M79.10 Myalgia, unspecified site
CPT/HCPCS: 80305; 84484-PO; G0480

== ENCOUNTER 2018-12-17 09:27 | Emergency (ER) | payer MEDICAID ==
[2018-12-17] MEDS ORDERED: ACETAMINOPHEN 500 MG TAB PO ONE (09:52)
--- NOTE | 2018-12-17 10:12 | EDPHY ---
General - History Smoking Status: Never smoked Time Seen by Provider: 12/17/18 09:40 Narrative: CLINICAL IMPRESSION: [ Viral URI with cough ASSESSMENT/PLAN: 38-year-old male presents to the emergency department with complaints of URI symptoms and generally not feeling well for the last 5 days. Patient is nontoxic, nonseptic, vital signs stable aside from hypertension but is noncompliant with hypertensive meds. He appears well hydrated, no acute respiratory distress. No clinical signs to suggest acute bacterial upper or lower respiratory infection. Influenza testing deferred given the duration of his symptoms. He complains initially of left flank pain but has no dysuria, urgency and no urinary findings to suggest UTI or pyelonephritis. Abdomen is soft with no focal peritoneal findings. He was given Tylenol and reported feeling better. He tolerated fluids well. He is apparently in transition between [place] and [place] however when case Management met with the patient he requested primary care follow-up in [place]. This was established for him. I did write a prescription for hydrochlorothiazide to bridge between today and his primary care appointment on January 02. Supportive care recommended, warning signs return to ED sooner outlined and discharge. DIFFERENTIAL DX: Differential diagnosis includes but not limited to influenza, influenza like syndrome, viral syndrome, bronchitis, sinusitis, pharyngitis, tonsillitis, dehydration ED PROCEDURES: See lab and/or imaging results below ED COURSE: Patient was given Tylenol. We will encourage p.o. Fluids. He does not appear severely dehydrated requiring IV therapy. Patient is requesting blood work which I do not feel he needs. I see no clinical findings for bacterial upper or lower respiratory disease. Will monitor tachycardia. History of hypertension, off medication x2 weeks. No complaints of chest pain or shortness of breath. 11:00 a.m.. Patient reassessed, vital signs improved, states he is feeling a little better. Drink 4 glasses of water in front of me. Complaining of left flank pain. I requested urine prior to discharge. I did offer to fill hydrochlorothiazide for him. Case management set up an appointment with his primary care in [place] for January 02. CHIEF COMPLAINT: Cough, sore throat, congestion x1 week HPI: 38-year-old male presents to the emergency department with complaints of URI symptoms and generally not feeling well times 5-6 days. Patient reports he is transitioning in moving from [place] to [place]. He arrives with a suitcase stating that he thought he might be admitted today. He reports no fevers. He states he has low energy. He has admittedly not been taking good care of himself. He admits that he has not had enough water to drink. He has not taken anything for his symptoms. He reports no underlying history of asthma or pulmonary disease. He did have empyema secondary to pneumonia many years ago. He does not use regular inhalers. He does smoke cigarettes and marijuana. He has been able to eat food and reports no GI illness. He is complaining of a mild headache. He did not get a flu shot this year. He does not have a local PCP. He reports a history of hypertension but has been out of his hypertension meds x2 weeks because "I just did not feel like going to the doctor". PAST MEDICAL HISTORY: Hypertension, prior history of empyema See triage summary and nurse notes for addition applicable history Pertinent Past Surgical History: None reported Family History: Noncontributory Social History: Smokes cigarettes and marijuana REVIEW OF SYSTEMS: A full 10 point review of systems was negative except for those mentioned in HPI. PHYSICAL EXAM: General Appearance: Alert, oriented, appropriate, obese, cooperative, NAD, lying comfortably on the bed, speaking in full sentences, no respiratory distress well hydrated, non-toxic appearing, tachycardic, hypertensive, no hypoxia. HEENT: TMs are clear bilaterally no perforation or FB, no injection, no evidence of serous or mucopurulent otitis. Oropharynx clear is no erythema or exudates, no tonsillar hypertrophy or asymmetry. Dentition with braces, no abnormality. Eyes: PERRLA, no acute vision change, nystagmus, swelling, discharge, pain or photosensitivity. Conjunctiva pink, no pallor or injection Neck: Supple, nontender, no lymphadenopathy, no midline pain, FROM, no meningismus. Respiratory: There are no retractions, lungs are clear to auscultation. Cardiac: Regular rate and rhythm, no murmurs or gallops. Gastrointestinal: Abdomen is soft, nontender, exam difficult due to large pannus , bowel sounds normal, no masses/hernia, no rigidity, guarding or focal peritoneal findings. Skin: Warm, dry, no rashes, no nodules on palpation. MEDICAL DECISION MAKING: Patient was seen independently. Secondary supervising physician at time of evaluation was: Dr. Pulido. Diagnosis: Viral URI with cough . New, requires workup Summary: See Assessment and Plan for summary of ED visit Clinical lab tests: Reviewed Independent visualization of images, tracing, or specimens: Did not obtain. Patient Progress: Improved. (Daljit Carbajal) Medical Decision Making: The patient was evaluated and managed by the physician tutoring assistant. I have reviewed this chart and I agree with the findings and plan of care as documented , as indicated by my signature. I am the secondary supervising physician. ( Nicki Pulido) - Objective Vital Signs: Initial Vital Signs Temperature (C) 36.5 C 12/17/18 09:28 Heart Rate 110 H 12/17/18 09:28 Respiratory Rate 18 12/17/18 09:28 Blood Pressure 166/117 H 12/17/18 09:28 O2 Sat (%) 94 12/17/18 09:28 O2 Delivery Mode Room Air Allergies/Adverse Reactions: No Known Allergies Allergy (Verified 10/10/18 16:22) Home Medications: Medication Instructions Recorded HCTZ (*) 12/17/18 Hydrochlorothiazide 25 mg PO DAILY #14 tablet 12/17/18 Medications Given: Discontinued Medications Acetaminophen (Tylenol) 1,000 mg PO EDNOW ONE Stop: 12/17/18 09:53 Last Admin: 12/17/18 09:55 Dose: 1,000 mg Departure - Departure Disposition: Home, Routine, Self-Care Clinical Impression: Viral URI with cough, Flank pain Condition: Good Instructions: Viral Syndrome (ED) Additional Instructions: You have a follow up appointment scheduled with Dr. Rand at [facility] on January 02 at 0940. [facility] to reschedule if you are unable to make it to this appointment. You may also follow up with [facility] in [place] if you feel that you need to be seen sooner [facility] [address] [place] [address] DISCHARGE INSTRUCTIONS FROM YOUR DOCTOR Thank you for visiting our emergency department today. Please keep in mind that discharge from the emergency department does not mean that there is nothing wrong - it simply means that we have not identified an emergency condition that requires further evaluation or treatment in the hospital. You should always plan to follow up with primary care for re-evaluation of your condition in the next 2-3 days. If you have been referred to a specialist, please call as soon as possible (today or tomorrow) to schedule your follow up appointment at the appropriate time. [ YOU HAVE NO EVIDENCE OF BACTERIAL INFECTION REQUIRING ANTIBIOTICS OR ADMISSION TO THE HOSPITAL. PLEASE USE TYLENOL OR IBUPROFEN FOR FEVER OR BODY ACHES. FLU TEST WAS NEGATIVE. URINE WAS WITHOUT ABNORMALITY. I DID GIVE A REFILL OF YOUR BLOOD PRESSURE MEDICATION. THIS IS ONLY FOR A SMALL SUPPLY AND FURTHER REFILLS NEED TO COME FROM PRIMARY CARE. DRINK PLENTY OF WATER, REST. RETURN TO THE EMERGENCY DEPARTMENT FOR WORSENING SYMPTOMS, WORSENING COUGH, SHORTNESS OF BREATH, ABDOMINAL PAIN, VOMITING, FEVERS GREATER THAN 100.4, OR ANY OTHER CONCERN. People present with illnesses and injuries in different ways, and it is always possible that we have missed something. You may always return for re-evaluation if symptoms worsen or if they are not improving or if you develop new/different symptoms. Again, thank you for choosing our emergency department. We hope that you feel better. Referrals: NONE *PRIMARY CARE P,. [Primary Care Provider] - As per Instructions [facility],. [Clinic] - 1-2 days without fail Prescriptions: Hydrochlorothiazide 25 mg PO DAILY #14 tablet
--- NOTE | 2018-12-17 10:48 | ASMTCMCOM ---
CM Note CM Note Notes: Patient presents to the ED with c/o "not feeling well", respiratory complaints. Patient states that he lives in [place] but has been working in [place]-also states that he "sometimes" stays in [place]. He states that his PCP is Dr. Rand at [facility] . This CM offered to attempt to schedule a follow up appointment for patient with his PCP, or refer him to [facility] in [place]. Patient would like to follow up with Dr. Rand. I ave scheduled a follow up appointment with Dr. Rand (first available) for January 02 at 0940 AM. ED report faxed to clinic . Patient confirms that he will follow up with this appointment. I have provided patient with information and hours for [facility] in [place] as well CM available for further needs prn Date Signed: 12/17/2018 10:48 AM Electronically Signed By:Emma Lucio RN
[2018-12-17 12:57] VITALS: BP 182/110
== END 2018-12-17 12:55 | disposition home or self-care (01) ==
DX: J06.9 Acute upper respiratory infection, unspecified (principal); R10.32 Left lower quadrant pain; I10 Essential (primary) hypertension